=== PATIENT | male | born 1930 | race Asian ===

== ENCOUNTER 2019-12-01 13:35 | Outpatient (CLI) | payer MEDICARE ==
--- NOTE | 2019-12-01 13:59 | RAD ---
CERVICAL SPINE FIVE VIEWS: HISTORY: Follow up fracture. COMPARISON: None. FINDINGS: Five views of the cervical spine are submitted for interpretation with the patient in a cervical ganga ar. There appears to be a fracture of the C1 vertebral body. 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 Limited evaluation of the odontoid process on the open-mouth and base of skull view. On the AP view t here is multilevel degenerative change. IMPRESSION: Limited evaluation of a reported C1 fracture. Transcribed Date/Time: 12/01/2019 2:37 PM
== END 2019-12-01 13:36 | disposition home or self-care (01) ==
LOC: TBSIIMAG 13:35
PROVIDERS: ATTEND Neurological Surgery
DX: S12.000D Unspecified displaced fracture of first cervical vertebra, subsequent encounter for fracture with routine healing (principal)
CPT/HCPCS: 72040

== ENCOUNTER 2020-01-14 12:50 | Outpatient (CLI) | payer MEDICARE ==
--- NOTE | 2020-01-14 14:11 | RAD ---
3 views cervical spine: 01/14/2020 COMPARISON: 12/01/2019 HISTORY: Cervical fracture the patient is imaged in a cervical collar. No comparison cross-sectional imaging is available. FINDINGS: Evaluation for fracture is limited on this examination secondary to presence of a cervical collar. There appears to be a fracture through the base of the dens with posterior displacement, not well assessed on this exam. There may be distraction in this region. In addition, there may be a fracture involving the posterior ring of C1. There is multilevel disc space narrowing with degenerative endplate change and anterior osteophyte formation at C4-5, C5-6, and C6-7. IMPRESSION: Findings suspicious for a posteriorly displaced fracture at the base of the dens. C1 ring and dens/C2 vertebral body not optimally assessed. Correlation with CT examination advised. CODE T
== END 2020-01-14 12:51 | disposition home or self-care (01) ==
LOC: TBSIIMAG 12:50
PROVIDERS: ATTEND Neurological Surgery
DX: S12.9XXA Fracture of neck, unspecified, initial encounter (principal)
CPT/HCPCS: 72040